=== PATIENT | male | born 1935 | race Caucasian/White ===

== ENCOUNTER → 2021-07-20 | Outpatient (CLI) | payer MEDICARE ==
[~2021-07-20] MED LIST: ALBU90OI61 INH; CEFU50SU PO; CHOL10002; DILT120 PO; HYDACE5 PO; METO25ER PO; PRED20 PO; Q-VAR; ROXICODONE5 MG PO; RXOXYACE PO; WARF5 PO
[2021-07-20 13:02] LABS: International Normalized Ratio 1.45; Prothrombin Time Results 14.9 Sec (9.7-11.5)
== END | disposition home or self-care (01) ==
LOC: LAB SHORT 11:40
PROVIDERS: Nurse Practitioner Family
DX: Z79.01 Long term (current) use of anticoagulants (principal); Z51.81 Encounter for therapeutic drug level monitoring; I48.91 Unspecified atrial fibrillation
CPT/HCPCS: 85610

== ENCOUNTER → 2022-12-15 | Outpatient (CLI) | payer MEDICARE | END | disposition home or self-care (01) | LOC: LAB SHORT 13:15 → LAB 13:15 | DX: M54.50 Low back pain, unspecified (principal); R30.0 Dysuria | CPT/HCPCS: 87086 ==